=== PATIENT | female | born 1945 | race Caucasian/White ===

== ENCOUNTER → 2024-02-29 13:07 | Outpatient (REF) | payer OTHER, SELFPAY | LOC: WDC 13:07 | PROVIDERS: ATTENDING PHYSICIAN Physician Assistant | DX: Z12.31 Encounter for screening mammogram for malignant neoplasm of breast (principal) | CPT/HCPCS: 77063; 77067 ==

== ENCOUNTER → 2025-08-15 07:05 | Outpatient (REF) | payer OTHER, SELFPAY | LOC: PAVMRI 07:05 | PROVIDERS: ATTENDING PHYSICIAN Student in an Organized Health Care Education/Training Program; FAMILY PHYSICIAN Physician Assistant | DX: M25.571 Pain in right ankle and joints of right foot (principal) | CPT/HCPCS: 73721 ==